=== PATIENT | male | born 1965 | race Caucasian/White ===

== ENCOUNTER 2018-04-25 15:46 | Emergency (ER) | payer MEDICARE, OTHER ==
[~2018-04-25] VITALS: Ht 170.2 cm; Wt 90.0 kg
[~2018-04-25 15:46] MED LIST: AMIT-189 PO; PRAZ2CAP2 PO; RANI150T44 PO; TRAM50TA2 PO; VENL150C58 PO
[2018-04-25 16:32] VITALS: BP 150/83
[2018-04-25] MEDS ORDERED: SULF1TAB49 PO (16:43)
[2018-04-25] MEDS ORDERED: LIDOcaine 1% w/epiNEPHrine 1:200,000 30ml vial IJ ONE (16:45)
[2018-04-25] MEDS ORDERED: sulfamethoxazole/trimethoprim DS (800/160mg) tablet PO ONE (17:35)
[2018-04-25] MEDS ORDERED: acetaminophen 325mg tablet PO ONE (17:35)
== END 2018-04-25 17:55 | disposition home or self-care (01) ==
LOC: ER 15:47
DX: L02.811 Cutaneous abscess of head [any part, except face] (principal); I10 Essential (primary) hypertension; Z79.899 Other long term (current) drug therapy
CPT/HCPCS: 10060; 99283; J3490

== ENCOUNTER 2018-07-15 02:24 | Emergency (ER) | payer MEDICARE, OTHER ==
[~2018-07-15] VITALS: Ht 170.2 cm; Wt 90.9 kg
[2018-07-15] MEDS ORDERED: MIRTAZAPINE 15 MG TABLET PO (03:09)
[2018-07-15] MEDS ORDERED: haloperidol lactate 5mg/ml inj IM ONE (03:50)
[2018-07-15] MEDS ORDERED: LORazepam 2 mg/ml vial IM ONE (03:50)
[2018-07-15] MEDS ORDERED: diphenhydrAMINE 50 mg/ml inj IM ONE (03:50)
--- NOTE | 2018-07-15 03:58 | NUR ---
when i went to draw labs and ask for urine, pt refused stating "fuck you. i will hans your fucking ass. go fuck yourself." pt lunged at this rn, unsuccessfully reaching me. security at bedside. dr shea saw whole incident and ordered im medications. labs and urine delayed at this time
[2018-07-15 05:20] LABS: BASOPHILS # (AUTO) 0.1 X10'3 (0-0.2); BASOPHILS % (AUTO) 0.5 % (0-1); EOSINOPHILS # (AUTO) 0.3 X10'3 (0-0.9); EOSINOPHILS % (AUTO) 2.6 % (0-6); HEMATOCRIT 40.8 % (42.0-52.0); LYMPHOCYTES # (AUTO) 5.6 X10'3 (1.1-4.8); LYMPHOCYTES % (AUTO) 48.4 % (21-51); MEAN CORPUSCULAR HEMOGLOBIN 30.6 PG (27.0-31.0); MEAN CORPUSCULAR HGB CONC 34.3 g/dL (33.0-36.5); MEAN CORPUSCULAR VOLUME 89.1 FL (78-98); MEAN PLATELET VOLUME 9.1 FL (7.4-10.4); MONOCYTES # (AUTO) 0.9 X10'3 (0-0.9); MONOCYTES % (AUTO) 7.7 % (2-12); NEUTROPHILS # (AUTO) 4.7 X10'3 (1.8-7.7); NEUTROPHILS % (AUTO) 40.8 % (42-75); PLATELET COUNT 194 X10'3 (140-440); RED BLOOD COUNT 4.58 X10'6 (4.70-6.10); RED CELL DISTRIBUTION WIDTH 12.9 % (11.5-14.5); WHITE BLOOD COUNT 11.6 X10'3 (4.5-11.0)
[2018-07-15 05:30] LABS: ALANINE AMINOTRANSFERASE 31 U/L (12-78); ALBUMIN 3.7 G/DL (3.4-5.0); ALBUMIN/GLOBULIN RATIO 1.2 (1.1-1.5); ALKALINE PHOSPHATASE 99 IU/L (46-116); ANION GAP 12 (8-16); ASPARTATE AMINO TRANSFERASE 21 U/L (10-37); BILIRUBIN,TOTAL 0.2 MG/DL (0.1-1.0); BLOOD UREA NITROGEN 22 MG/DL (7-18); BUN/CREATININE RATIO 32.4 (5.4-32.0); CALCIUM 9.1 MG/DL (8.5-10.1); CHLORIDE 102 MMOL/L (99-107); CREATININE 0.68 MG/DL (0.60-1.10); GLUCOSE 111 MG/DL (70-104); POTASSIUM 3.4 MMOL/L (3.5-5.1); SODIUM 140 MMOL/L (135-145); TOTAL CARBON DIOXIDE 26.2 MMOL/L (24-32); TOTAL PROTEIN 6.7 G/DL (6.4-8.2); eGFR > 90 ML/MIN
[2018-07-15 05:39] LABS: ETHANOL < 0.010 GM/DL (0.0-0.010)
[2018-07-15] MEDS: mirtazapine 15mg tablet PO SCH (08:00)
--- NOTE | 2018-07-15 12:05 | NUR ---
pt. ate zero of his breakfast... pt. sleeping.
--- NOTE | 2018-07-15 17:12 | NUR ---
Roued patient about elemenation needs. Patient was quite beligerant, and stayed he wanted to be left alone. VSS taken. Lack of urine out put brought up to NIDHI Rosenberg. No new orders.
--- NOTE | 2018-07-15 18:23 | NUR ---
telepsych consult re-initiated. patient waiting consult
--- NOTE | 2018-07-15 18:50 | NUR ---
Pt brought over from main ER. Pt ambulating but had a sedated demeanor. Pt asked if he needed the restroom and declined. He was place in bed, covered with blankets and appeared to be sleeping. Pt difficult to rouse for telepsych. Nurse at bed side to assist with communication as pt was speaking softly and mumbling during interview. Tele psych results placed in the chart
--- NOTE | 2018-07-15 20:16 | NUR ---
pt offered dinner, restroom, and water. Pt refused, still very sleepy. Pt sleeping on his back, respirations even and unlabored.
--- NOTE | 2018-07-15 21:19 | NUR ---
Pt continues to sleep quietly on his back. Respirations even and unlabored. VS WNL
--- NOTE | 2018-07-15 22:40 | NUR ---
Pt has not urinated since arrival at ER approx 18 hrs ago. Bladder scan revealed 958 ml. PT assisted with urinal with no results. Pt straight cathed successfully with 1000 ml seble urine out. Pt tolerated procedure will with no resistence. Urine sample sent to lab. PCT assisted pt with comfort, he is now sleeping on his right side, resp even and unlabored.
[2018-07-15 22:50] LABS: CLARITY,URINE CLEAR (Clear); COLOR,URINE YELLOW (Yellow); GLUCOSE, URINE NEGATIVE (Neg); KETONES,URINE NEGATIVE (Neg); LEUKOCYTE ESTERASE ,URINE NEGATIVE (Neg); NITRITES, URINE NEGATIVE (Neg); OCCULT BLOOD,URINE NEGATIVE (Neg); PH,URINE 5.5 (4.8-8.0); PROTEIN,URINE NEGATIVE (Neg); UROBILINOGEN,URINE 0.2 E.U/dL (0.2-1.0)
[2018-07-15 22:51] LABS: UA COLLECTION TYPE STRAIGHT CATH
[2018-07-15 22:55] LABS: URINE AMPHETAMINE SCREEN POSITIVE (Neg); URINE BARBITUATE SCREEN NEGATIVE (Neg); URINE BENZODIAZEPINES SCREEN NEGATIVE (Neg); URINE CANNABINOID SCREEN POSITIVE (Neg); URINE COCAINE SCREEN NEGATIVE (Neg); URINE METHADONE SCREEN NEGATIVE (Neg); URINE OPIATE SCREEN NEGATIVE (Neg); URINE PHENCYCLIDINE SCREEN NEGATIVE (Neg)
--- NOTE | 2018-07-15 23:57 | NUR ---
Packet sent to [facility].
--- NOTE | 2018-07-16 05:22 | NUR ---
Pt has slept peacefully throughout the night, independantly changing position approx 3 times. Pt now awake, requesting food. Pt eating and drinking, cooperating with PCT to obtain vital signs.
[2018-07-16] MEDS ORDERED: acetaminophen 325mg tablet PO ONE (05:45)
--- NOTE | 2018-07-16 05:48 | NUR ---
Pt stated he had mouth pain. Tylenol 650 mg administered.
[2018-07-16] MEDS: mirtazapine 15mg tablet PO SCH (08:00)
--- NOTE | 2018-07-16 18:49 | NUR ---
asking for dinner. and it just arrived.
--- NOTE | 2018-07-16 22:41 | NUR ---
PT S BEEN VERY QUIET THIS EVENING. HASNT ASKED FOR ANYTHING. SLEEPING QUIETLY AT THIS TIME.
--- NOTE | 2018-07-17 02:21 | NUR ---
PATIENT IN BED COVERS ON EYES CLOSED NO S/S OF ACUTE STRESS AT THIS TIME
--- NOTE | 2018-07-17 04:22 | NUR ---
PATIENT UP TO BATHROOM AND BACK TO BED COVERS ON LYING SUPINE EYES CLOSED RR EVEN UN LABORED NO OBSERVABLE S/S OF ACUTE STRESS AT THIS TIME
--- NOTE | 2018-07-17 06:30 | NUR ---
report from gladis alvarez
[2018-07-17] MEDS: mirtazapine 15mg tablet PO SCH ×2 (07:22→20:18)
--- NOTE | 2018-07-17 08:30 | NUR ---
pt eating breakfast, wanted to wait for food to take morning meds
--- NOTE | 2018-07-17 10:37 | NUR ---
pt resting quitely, will continue to monitor
--- NOTE | 2018-07-17 12:30 | NUR ---
pt asked to talk to [facility] (johana) notifed he would like some communication and to be informed of the plan for him
--- NOTE | 2018-07-17 14:19 | NUR ---
pt still asking for johana she is aware, pt has made a couple phone calls home and is distraught when on the phone
--- NOTE | 2018-07-17 16:16 | NUR ---
pts lulú came to get his cards from his wallet they both signed a document with a photocopy of gfs ID, pt is wanting to have his [employer] card, ebt and [employer] card sent home with gf bc they have a baby that needs to be fed. all documentation in chart
--- NOTE | 2018-07-17 17:39 | NUR ---
pt resting raina
--- NOTE | 2018-07-17 18:32 | NUR ---
report given to NATHAN macdonald
[2018-07-17] MEDS ORDERED: acetaminophen 325mg tablet PO ONE (19:10)
--- NOTE | 2018-07-17 19:45 | NUR ---
PATIENT HAVING A PLEASANT CONVERSATION WITH THE PATIENT IN ROOM 21
--- NOTE | 2018-07-17 20:55 | NUR ---
JAKE FROM [facility] IN ROOM WITH PATIENT. WHEN JAKE LEFT THE ROOM; THE PATIENT CAME OUT AGITATED. I RESSURED HIM THAT I WOULD COME AND TALK TO HIM AND LET HIMN CALL HIS BROTHER.
--- NOTE | 2018-07-17 21:24 | NUR ---
PATIENT GIVEN PHONE AND DIALED BROTHER'S PHONE NUMBER FOR HIM
[2018-07-17] MEDS ORDERED: LORazepam 2 mg/ml vial IM ONE (21:45)
[2018-07-17] MEDS ORDERED: haloperidol lactate 5mg/ml inj IM ONE (21:45)
--- NOTE | 2018-07-17 21:45 | NUR ---
SPOKE TO DR RITTER ABOUT THE PATIENT AMPING UP HIS BEHAVIOR AND YELLING AND BECOMING VERY ANGRY WHEN [facility] TOLD HIM HE WASA NOT GOING HOME.
--- NOTE | 2018-07-17 21:45 | NUR ---
SPOKE WITH PATIENT'S BROTHER JAKE AT [phone]. BROTHER JAKE DOES NOT WANT HIS BROTHER HOME DUE TO HIS CONCERN FOR HIS OWN SAFETY AND THE REST OF THE FAMILY. JAKE WANTS HIS BROTHER TO GET MENTAL HEALTH HELP HIS BROTHER'S BEHAVIOR HAS BECOME MORE ERRATIC. JAKE WAS GOING TO TALK TO HIS BROTHER AND TELL HIM. I PUT A PHONE IN THE PATIENT'S ROOM AND TRANSFERED THE CALL IN TO THE ROOM BECAUSE THE PATIENT WANTED TO TALK TO HIS BROTHER. THE PATIENT KEPT REPEATING "I WANT TO COME HOME" AND HE BECAME LOUDER AND LOUDER. THE PATIENT STARTED YELLING "YOULL BE SORRY; I HATE YOU" AND I ASKED FOR THE PHONE BACK
--- NOTE | 2018-07-17 21:48 | NUR ---
TRIED TO REASSURE PATIENT THAT HIS FAMILY WANTS HIM WELL. ATTEMPTED BREATHING, IMAGERY. PER DR SORENSEN, GAVE THE PATIENT THE OPTION OF TAKING HIS MEDICATIONS ORALLY OR IM. THE PATIENT CHOSE IM
--- NOTE | 2018-07-17 21:48 | NUR ---
WHEN I RETURNED TO GIVE THE PATIENT HIS SHOTS, HE JUMPED OUT OF BED, TORE HIS SHIRT OFF AND POSTURED AND SAID "COME FUCKING GET ME, IM GOING TO THANH EVERYONE OF YOU. FUCK OFF." SECURITY WAS AT BEDSIDE, PATIENT WAS ASKING ME TO COME GET HIM. HE STARTED SCREAMING ABOUT 'MESSING UP HIS BAD HIP AND SHOULDER'. I ASKED HIM TO GET INTO BAED WITH SECURITY AWAY FROM THE BED AND HE LAID IN BED AND I GAVE HIM HIS IM MEDS. HE CONTINUED TO SWEAR AND SAY "YOU FUCKERS ARE GONNA COST ME EVERYTHING, IM GONNA THANH, I GOT MONEY IN THE BANK."
--- NOTE | 2018-07-17 23:49 | NUR ---
PATIENT APPEARS TO BE SLEEPING ON HIS BACK. RR EVEN UNLABORED.
--- NOTE | 2018-07-18 00:59 | NUR ---
PATIENT APPEARS TO BE SLEEPING ON HIS LEFT SIDE; RR EVEN UNLABORED
--- NOTE | 2018-07-18 02:30 | NUR ---
PATIENT LYING ON LEFT SIDE WITH GREEN BLANKET ON HIS BODY RR EVEN UNLABORED
--- NOTE | 2018-07-18 04:32 | NUR ---
RR EVEN UNLABORED, APPEARS TO BE SLEEPING ON HIS RIGHT SIDE
[2018-07-18] MEDS ORDERED: LORazepam 1 MG tablet PO ONE (06:00)
[2018-07-18] MEDS ORDERED: LORazepam 1 MG tablet PO PRN (11:15)
--- NOTE | 2018-07-18 13:07 | NUR ---
LUNCH MEAL TRAY PLACED AT PT BEDSIDE, PT SITTING UP IN BED EATING NOW
--- NOTE | 2018-07-18 13:51 | NUR ---
PT SLEEPING NOW, ATE MOST OF LUNCH QUIETLY.
--- NOTE | 2018-07-18 15:56 | NUR ---
PT ASKED IF WE KNEW WHEN HE WOULD BE PLACED. PT WAS TOLD THAT WE DO NOT HAVE INFO AT THIS TIME BUT WILL LET HIM KNOW WHEN WE DO. PT IS FRUSTRATED THAT HE IS "STUCK HERE."
--- NOTE | 2018-07-18 16:37 | NUR ---
PT IS RESTING QUIETLY IN BED
--- NOTE | 2018-07-18 17:37 | NUR ---
PT IS SLEEPING QUIETLY IN BED. RR NORMAL AND UNLABORED
[2018-07-18] MEDS: mirtazapine 15mg tablet PO SCH (20:28)
--- NOTE | 2018-07-18 22:00 | NUR ---
pt is sleeping in bed. rr normal, unlabored.
--- NOTE | 2018-07-19 00:11 | NUR ---
pt is laying on left side, appears to be sleeping
--- NOTE | 2018-07-19 04:48 | NUR ---
pt is sleeping, rr normal.
--- NOTE | 2018-07-19 06:30 | NUR ---
Pt in bed, appears to be sleeping.
--- NOTE | 2018-07-19 07:50 | NUR ---
Pt got up, walked to BR, returned to bed.
--- NOTE | 2018-07-19 09:50 | NUR ---
Pt denies all symptoms, answers all mental health assessment questions with, "no, I just want to go home."
--- NOTE | 2018-07-19 11:15 | NUR ---
Pt asked to use telephone, made a phone call and returned the phone.
--- NOTE | 2018-07-19 12:27 | NUR ---
Pt approached the nurses' station to report that his ears are ringing, that they started ringing a half an hour ago. Asked pt if this was something new for him. He replied that no it was not but he just though he would let me know.
--- NOTE | 2018-07-19 14:30 | NUR ---
Pt lying in bed, appears to be sleeping.
--- NOTE | 2018-07-19 16:00 | NUR ---
Pt approached the nurses' station wanting to discuss hold status during a busy moment, in the middle of discharging another pt. Explained to pt that I would come and talk to him in a few minutes, pt returned to his bed.
--- NOTE | 2018-07-19 16:10 | NUR ---
Pt became somewhat impatient waiting to speak with nurse and became a little loud with his verbalizations. Reassured the pt that he was important, apologized for the delay. Pt stated that he had been here for 4 days and so his hold should be up today, expressed frustration that he had not spoken with [facility] today. Explained that his hold was written on 07/17/18 and expires tomorrow evening. Pt hung his head, expressed sadness and remorse that today is Knight's Day and he could not be with his girlfriend and his child. Therapeutic listening provided, asked pt if he had been able to call them, pt stated he had tried. Pt also expressed frustration at not being able to shower, requested clean socks. Offered pt a hygiene bin and provided clean socks, pt expressed gratitude.
--- NOTE | 2018-07-19 17:15 | NUR ---
Pt went to bathroom and washed up , requested fresh ice water, fresh ice water provided.
--- NOTE | 2018-07-19 19:09 | NUR ---
Assumed care, patient currently sitting up in bed eating his dinner.
[2018-07-19] MEDS ORDERED: acetaminophen 325mg tablet PO ONE (19:25)
[2018-07-19] MEDS: mirtazapine 15mg tablet PO SCH (20:28)
--- NOTE | 2018-07-19 21:04 | NUR ---
Patient took HS medications without issue. He proudly showed sports book writer some crayon drawings he did. He is now resting with his eyes closed in bed.
--- NOTE | 2018-07-19 23:00 | NUR ---
Patient sat up in bed eating his dinner tray, and after he finished he asked staff for crayons and paper to color. Pt was given crayons and paper. He also requested tylenol for a headache and mild tooth pain. Physician placed a one time order for tylenol 650mg PO with was administered. Pt erin three pictures and proudly showed medical technical writer. The one picture had a sun drawn with a smiley face and some random letters written around and "god" written more than once. Narrow Gauge Engineer asked how he was feeling this evening he responded, "I am feeling a lot better tonight, I do want to go home though." He briefly smiles at medical technical writer and thanks me multiple times for being his nurse. He denies any suicidal ideation at this time. He also denies any AH/AV. Pt was cooperative with physical assessment and is compliant with HS medications.
--- NOTE | 2018-07-20 01:00 | NUR ---
Patient is currently alseep in bed. No signs or symptoms of distress.
--- NOTE | 2018-07-20 03:00 | NUR ---
Patient is asleep in bed, moves around from time to time to get comfortable. No signs or symptoms of distress.
--- NOTE | 2018-07-20 05:00 | NUR ---
Patient was feeling anxious because he "can't stop thinking about going home. He paced back and forth a few times, asked to please lay back down. Given PRN ativan 1mg, patient calmed down and is currently resting with no complaints.
[2018-07-20] MEDS ORDERED: haloperidol 1mg tablet PO PRN (08:05)
[2018-07-20] MEDS ORDERED: diphenhydrAMINE 25mg capsule PO PRN (08:05)
[2018-07-20] MEDS ORDERED: LORazepam 1 MG tablet PO PRN (08:05)
[2018-07-20] MEDS ORDERED: acetaminophen 325mg tablet PO ONE ×2 (10:05→17:35)
[2018-07-20 17:31] VITALS: BP 133/87
--- NOTE | 2018-07-20 17:32 | NUR ---
PT REQUEST TYLENOL FOR TOOTH PAIN, RECEIVED VO FROM Tatiana TERRELL
--- NOTE | 2018-07-20 17:41 | NUR ---
PTS BROTHER JAKE CALLED CHECKING ON PT STATUS. RECEIVED VERBAL CONSENT FROM PT TO SPEAK WITH BROTHER REGARDING PLAN OF CARE AND PT STATUS. FAMILY INFORMED PT HAS BEEN CALM, COOPERATIVE AND BEEN RESTING MOST OF DAY. BROTHER HAPPY TO HEAR AND STATES IF PT RELEASED PT CAN STAY WITH HIM. BROTHJOSEP PHONE NUMBER:
[2018-07-20] MEDS: mirtazapine 15mg tablet PO SCH (20:23)
== END 2018-07-20 22:15 | disposition home or self-care (01) ==
LOC: ER 02:25
DX: F28 Other psychotic disorder not due to a substance or known physiological condition (principal); I10 Essential (primary) hypertension; Z79.899 Other long term (current) drug therapy
CPT/HCPCS: 36415; 80053; 80305; 80320; 81003; 84443; 85025; 96372; 99285; J1200; J1630; J2060; P9612